=== PATIENT | male | born 1950 | race Caucasian/White ===

== ENCOUNTER 2021-05-16 18:39 | Inpatient (IN) | payer OTHER ==
--- OUTSIDE RECORDS SUMMARY | 2021-05-16 18:41 | XMS REPORT | Continuity of Care Document ---
:1950 Author Organization [facility] t Address [address] [place] [address] [address]. [address] [place] [address] Care Team Providers Name Role Phone AWILDA Attending Clinician Unavailable ANURAG_Samuel Attending Clinician Unavailable Mirian Watson Attending Clinician [phone] norma Attending Clinician Unavailable ANURAG_Samuel Admitting Clinician Unavailable [email or web address]_[email or web address] Admitting Clinician Unavailable Payers Payer Name Policy Type Policy Number Effective Date Expiration Date S ource MEDICARE PART A [id number] 2012 2024 AND B 00:00:00 00:00:00 MEDIC[place]: [id number] 2012 [employer] 00:00:00 Problems This patient has no known problems. Allergies, Adverse Reactions, Alerts This patient has no known allergies or adverse reactions. Medications This patient has no known medications. Procedures This patient has no known procedures. Encounters Start End Encounter Admission Attending Care Care Encounter Source Date/Time Date/Time Type Type Clinicians Facility Department ID 2021-04-14 Outpatient AWILDA [facility] [id number] [place] 15:22:27 [facility] 2021-04-25 2021-04-25 Outpatient NORMA [facility] [id number] [place] 03:06:00 03:06:00 208 [facility] 2021-04-25 2021-04-25 Outpatient Marj Watson [facility] [id number] 00:00:00 00:00:00 Mirian [id number] 2021-02-21 2021-02-21 Outpatient NORMA [facility] [id number] [place] 01:59:00 01:59:00 207 [facility] 2021-01-31 2021-01-31 Outpatient KEFFER_A [facility] [id number] [place] 05:28:00 05:28:00 116 [facility] 2021-01-12 2021-01-12 Outpatient KEFFER_A [facility] [id number] [place] 10:58:00 10:58:00 [id number] [facility] 2021-01-12 2021-01-12 Outpatient Marj Watson [facility] [id number] 00:00:00 00:00:00 Mirian [id number] 2020-12-14 2020-12-14 Outpatient KEFFER_A [facility] [id number] [place] 11:27:00 11:27:00 [id number] [facility] 2020-12-14 2020-12-14 Outpatient Marj Watson [facility] [id number] 00:00:00 00:00:00 Mirian [id number] 2020-09-08 2020-09-08 Outpatient KEFFER_A [facility] [id number] [place] 10:55:00 10:55:00 [id number] [facility] 2020-09-08 2020-09-08 Outpatient Marj Watson [facility] [id number] 00:00:00 00:00:00 Mirian [id number] 2020-06-22 2020-06-22 Outpatient KEFFER_A [facility] [id number] [place] 01:02:00 01:02:00 407 [facility] 2020-06-09 2020-06-09 Outpatient KEFFER_A [facility] [id number] [place] 11:55:00 11:55:00 325 [facility] 2020-06-08 2020-06-08 Outpatient KEFFER_A [facility] [id number] [place] 05:21:00 05:21:00 324 [facility] 2020-06-08 2020-06-08 Outpatient Marj Watson [facility] [id number] 00:00:00 00:00:00 Mirian [id number] 2020-02-03 2020-02-03 Outpatient nomra [facility] [id number] [place] 02:26:00 02:26:00 [id number] [facility] Results This patient has no known results.
[2021-05-16 19:01] LABS: Absolute Lymphocytes (CBC) 1.3 K/uL (0.7-4.9); Hematocrit 44.4 % (39.6-49.0); Lymphocytes % 21.7 % (15.3-44.8); MPV 9.1 fL (7.6-11.3); RBC Red Blood Cell Count 4.82 M/uL (4.33-5.43)
[2021-05-16 19:02] LABS: Protime INR 1.01
--- NOTE | 2021-05-16 19:12 | RAD REPORT ---
EXAM DESCRIPTION: RAD - Humerus Left - 05/16/2021 7:06 pm CLINICAL HISTORY: Left arm pain status post fall FINDINGS: No fracture is seen
[2021-05-16 19:15] LABS: ALT/SGPT 32 U/L (12-78); AST/SGOT 15 U/L (15-37); Albumin 3.6 g/dL (3.4-5.0); BUN Blood Urea Nitrogen 15 mg/dL (7-18); Bicarbonate 31 mmol/L (21-32); Bilirubin Direct 0.2 mg/dL (0-0.2); Bilirubin Total 0.5 mg/dL (0.2-1.0); Glucose Level 183 mg/dL (74-106); Magnesium 2.4 mg/dL (1.8-2.4); Potassium 3.7 mmol/L (3.5-5.1); Protein, Total 6.7 g/dL (6.4-8.2); Sodium Level 136 mmol/L (136-145)
[2021-05-16 19:20] LABS: Alkaline Phosphatase 84 U/L (45-117); NT PRO-BNP 25 pg/mL (<125)
--- NOTE | 2021-05-16 19:59 | RAD REPORT ---
EXAM DESCRIPTION: CT - Head C Spine Cap Mandy Buenrostro - 05/16/2021 7:45 pm CLINICAL HISTORY: Head and neck injury with chest and abdominal pain status post fall. Head and neck pain . TECHNIQUE: Computed axial tomography of the head and cervical spine was obtained Computed axial tomography of the chest, abdomen and pelvis was obtained. 100 cc Isovue-300 was given intravenously coronal and sagittal reconstruction was performed. All CT scans are performed using dose optimization technique as appropriate and may include automated exposure control or mA/KV adjustment according to patient size. COMPARISON: none FINDINGS: An intracranial bleed is not seen. The ventricles are normal in caliber. An extra-axial fl uid collection is not noted. Fluid within the sinuses is not seen A cervical fracture is not seen. No dislocation is seen. Spondylosis involves the cervical spine resu lting multilevel moderate central spinal stenosis. A mediastinal hematoma is not noted. A pleural effusion is not present. A lung contusion is not seen. The liver, spleen, pancreas, adrenals, kidneys and bladder do not demonstrate a traumatic injury Small umbilical hernia IMPRESSION: No acute intracranial abnormality is seen A cervical fracture is not visualized. If the patient continues have symptoms to suggest intracranial /spinal cord pathology then MRI would be recommended. No traumatic injury involving the chest, abdomen or pelvis is seen.
--- NOTE | 2021-05-16 20:02 | RAD REPORT ---
EXAM DESCRIPTION: Yonis Single View05/16/2021 7:06 pm CLINICAL HISTORY: Chest pain COMPARISON: none FINDINGS: The lungs appear clear of acute infiltrate. The heart is normal size IMPRESSION: No acute abnormalities displayed
[2021-05-16] MEDS ORDERED: FENTANYL CITR 100 MCG/2 ML ONE (20:05)
--- NOTE | 2021-05-16 20:40 | RAD REPORT ---
EXAM DESCRIPTION: RAD - Clavicle Left - 05/16/2021 8:20 pm CLINICAL HISTORY: Shoulder pain FINDINGS: No fracture or dislocation is seen .
[2021-05-16] MEDS ORDERED: ONDANSETRON 4 MG/2 ML VIAL ONE (21:14)
[2021-05-16] MEDS ORDERED: MORPHINE 4 MG/ML SYR ONE (21:14)
--- NOTE | 2021-05-16 21:24 | EDPHYS ---
Physician Documentation [facility] Name: Joe Gross Age: 71 yrs Sex: Male : 1950 Arrival Date: 05/16/2021 Time: 18:40 Bed 17 Private MD: ED Physician Wild Bentley HPI: 05/16 18:50 This 71 yrs old Male presents to ER via EMS with complaints of Fall Injury. cp 18:50 Details of fall: The patient fell from an upright position, while walking, and struck a cp concrete surface. Onset: The symptoms/episode began/occurred just prior to arrival. Associated injuries: The patient sustained left upper arm. Severity of symptoms: in the emergency department the symptoms have improved, moderately. 21:00 reports patient went outside to walk dog and was gone less than 5 minutes. She cp reports she went to check on him and found him on the ground and he was unresponsive for approximately 10 minutes, appears frausto. Historical: - Allergies: 19:49 No Known Allergies; lr4 - Home Meds: 19:49 clopidogrel 75 mg oral tab [Active]; lr4 - PMHx: 19:49 Diabetes mellitus; Hypertensive disorder; Cerebrovascular accident; lr4 Hypercholesterolemia; Dementia; - Immunization history: Last tetanus immunization: unknown. - Social history:: Smoking status: unknown. ROS: 18:55 Constitutional: Negative for fever. cp 18:55 Cardiovascular: Negative for chest pain. cp 18:55 Abdomen/GI: Negative for abdominal pain. 18:55 MS/extremity: Positive for pain, of the left upper arm, Negative for decreased range of motion, deformity. 18:55 Neuro: Negative for altered mental status. 18:55 Unable to obtain ROS due to baseline dementia. cp Exam: 19:00 ECG was reviewed by the Attending Physician. cp 19:05 Constitutional: The patient appears in no acute distress, alert, awake, comfortable, cp non-diaphoretic, non-toxic, well developed, well nourished. 19:05 Head/Face: Normocephalic, atraumatic. cp 19:05 Eyes: Pupils: equal, round, and reactive to light and accomodation, Conjunctiva: normal, no exudate, no injection, Sclera: no appreciated abnormality, Lids and lashes: appear normal, bilaterally. 19:05 ENT: External ear(s): are unremarkable, Nose: is normal, Mouth: Lips: moist, Oral mucosa: moist, Posterior pharynx: Airway: no evidence of obstruction, patent. 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 19:05 Chest/axilla: Inspection: normal, Palpation: crepitus, is not appreciated, tenderness, is not appreciated. 19:05 Cardiovascular: Rate: normal, Rhythm: regular, Edema: is not appreciated, JVD: is not appreciated. 19:05 Respiratory: the patient does not display signs of respiratory distress, Respirations: normal, no use of accessory muscles, no retractions, labored breathing, is not present, Breath sounds: are clear throughout, no decreased breath sounds, no stridor, no wheezing. 19:05 Abdomen/GI: Inspection: abdomen appears normal, Bowel sounds: active, all quadrants, Palpation: abdomen is soft and non-tender, in all quadrants. 19:05 Musculoskeletal/extremity: Extremities: grossly normal except: noted in the left upper arm: pain, tenderness, There is no evidence of decreased ROM, deformity, Pulses: noted to be 2+ in the right radial artery and left radial artery. 19:05 Neuro: Orientation: to person, place, Mentation: able to follow commands, slow to respond, Motor: moves all fours, strength is normal, Sensation: no obvious gross deficits. Vital Signs: 18:42 BP 122 / 71; Pulse 61; Resp 20; Temp 97.8; Pulse Ox 97% on 2 lpm NC; lr4 18:42 BP 122 / 71; Pulse 61; Resp 18; Temp 97.8(O); Pulse Ox 92% on R/A; Weight 72.57 kg; lr4 Height 5 ft. 3 in. (160.02 cm) (R); Pain 10/10; 19:58 BP 150 / 70; Pulse 91; Resp 20; Pulse Ox 98% on 2 lpm NC; lr4 20:28 BP 115 / 73; Pulse 81; Resp 18; Pulse Ox 98% on 2 lpm NC; ss7 21:18 BP 153 / 99; Pulse 88; Resp 18; Pulse Ox 95% ; lr4 21:40 BP 125 / 70; Pulse 65; Resp 20; Pulse Ox 100% on R/A; lr4 18:42 Body Mass Index 28.34 (72.57 kg, 160.02 cm) lr4 Cornell Coma Score: 18:42 Eye Response: spontaneous(4). Verbal Response: oriented(5). Motor Response: obeys lr4 commands(6). Total: 15. Trauma Score (Adult): 18:42 Eye Response: spontaneous(1); Verbal Response: oriented(1); Motor Response: obeys lr4 commands(2); Systolic BP: > 89 mm Hg(4); Respiratory Rate: 10 to 29 per min(4); Cornell Score: 15; Trauma Score: 12 MDM: 18:47 Patient medically screened. cp 19:00 Differential diagnosis: closed head injury, contusion, fracture, multiple trauma, cp cardiac arrythmia, syncope. 21:25 Data reviewed: vital signs, nurses notes, lab test result(s), EKG, radiologic studies, cp CT scan, plain films. 21:25 Test interpretation: by ED physician or midlevel provider: ECG, plain radiologic cp studies. Counseling: I had a detailed discussion with the patient and/or guardian regarding: the historical points, exam findings, and any diagnostic results supporting the discharge/admit diagnosis, lab results, radiology results. Physician consultation: Tyler Beltre was called at 21:20, was contacted at 21:20, regarding admission, to the telemetry unit. patient's condition, and will see patient in ED. 05/16 18:46 Order name: Basic Metabolic Panel cp 05/16 18:46 Order name: CBC with Diff cp 05/16 18:46 Order name: LFT's; Complete Time: 19:54 cp 05/16 18:46 Order name: Magnesium; Complete Time: 19:54 cp 05/16 18:46 Order name: NT PRO-BNP; Complete Time: 19:54 cp 05/16 18:46 Order name: PT-INR; Complete Time: 19:54 cp 05/16 18:46 Order name: Troponin HS; Complete Time: 19:54 cp 05/16 18:47 Order name: Basic Metabolic Panel; Complete Time: 19:54 EDMS 05/16 18:47 Order name: CBC with Automated Diff; Complete Time: 19:54 EDMS 05/16 21:23 Order name: COVID-19 SARS RT PCR (Document "Date of Onset" if Symptomatic) cp 05/16 21:23 Order name: SARS-COV-2 RT PCR; Complete Time: 08:11 EDMS 03 00:47 Order name: Troponin High Sensitivity; Complete Time: 08:11 EDMS 05/17 02:18 Order name: Urinalysis; Complete Time: 08:11 EDMS 05/17 05:38 Order name: CBC with Automated Diff; Complete Time: 08:11 EDMS 05/16 18:46 Order name: XRAY Chest (1 view); Complete Time: 20:48 cp 05/16 20:48 Interpretation: Report review. cp 05/16 18:46 Order name: XRAY Humerus LEFT; Complete Time: 19:54 cp 05/16 18:46 Order name: CT Traumagram (Head C Spine CAP W Con); Complete Time: 20:48 cp 05/16 19:56 Order name: XRAY Clavicle LEFT; Complete Time: 20:48 cp 05/16 20:49 Interpretation: Report reviewed. cp 03 05:39 Order name: Troponin High Sensitivity; Complete Time: 08:11 EDMS 05/17 05:43 Order name: Comprehensive Metabolic Panel; Complete Time: 08:11 EDMS 05/17 05:43 Order name: Lipid Profile; Complete Time: 08:11 EDMS 05/17 05:43 Order name: T4 Free; Complete Time: 08:11 EDMS 05/17 05:43 Order name: Magnesium; Complete Time: 08:11 EDMS 05/17 05:43 Order name: Thyroid Stimulating Hormone; Complete Time: 08:11 EDMS 05/17 06:54 Order name: Manual Differential; Complete Time: 08:11 EDMS 05/17 07:41 Order name: US; Complete Time: 08:11 EDMS 05/17 08:43 Order name: Glucose, Ancillary Testing EDMS 05/16 18:46 Order name: EKG; Complete Time: 18:47 cp 05/16 18:46 Order name: Cardiac monitoring; Complete Time: 18:59 cp 05/16 18:46 Order name: EKG - Nurse/Tech; Complete Time: 18:59 cp 05/16 18:46 Order name: IV Saline Lock; Complete Time: 18:59 cp 05/16 18:46 Order name: Labs collected and sent; Complete Time: 18:59 cp 05/16 18:46 Order name: O2 Per Protocol; Complete Time: 18:59 cp 05/16 18:46 Order name: O2 Sat Monitoring; Complete Time: 18:59 cp EC:00 Rate is 64 beats/min. Rhythm is regular. MA interval is normal. QRS interval is normal. cp QT interval is normal. Interpreted by me. Reviewed by me. Administered Medications: 20:01 Drug: fentaNYL (PF) 25 mcg Route: IVP; Site: left antecubital; lr4 20:07 Follow up: Response: Pain is decreased lr4 21:17 Follow up: Response: Pain is unchanged, physician notified lr4 21:17 Drug: morphine 4 mg Route: IVP; Site: left antecubital; lr4 21:35 Follow up: Response: No adverse reaction; Pain is decreased lr4 21:17 Drug: Zofran (Ondansetron) 4 mg Route: IVP; Site: left antecubital; lr4 21:18 Follow up: Response: Nausea is decreased lr4 Disposition: 21:45 Chart complete. cp Disposition Summary: 05/16/21 21:24 Hospitalization Ordered Hospitalization Status: Observation cp Provider: Prince adolfo Murdock Condition: Stable cp Problem: new cp Symptoms: have improved cp Bed/Room Type: Standard cp Location: Telemetry/MedSurg (observation)(05/17/21 08:01) bd Room Assignment: 423(05/17/21 08:01) bd Diagnosis - Syncope cp Forms: - Medication Reconciliation Form cp - SBAR form cp Signatures: Dispatcher [employer] EDDarlene Huang Martha, RN RN Carmelo Carlos PA PA cp Wild Bentley MD MD ma2 Marietta Lima RN RN lr4 Corrections: (The following items were deleted from the chart) 21:54 21:24 Telemetry/MedSurg (observation) cp mw 21:54 21:24 cp mw 05/17 08:01 03 21:54 [facility] ER HOLD mw bd 05/17 08:05/16 21:54 ERHOLD- mw bd
--- NOTE | 2021-05-16 21:24 | ER ---
Nurse's Notes [facility] Name: Joe Gross Age: 71 yrs Sex: Male : 1950 Arrival Date: 05/16/2021 Time: 18:40 Bed 17 Private MD: Diagnosis: Syncope Presentation: 05/16 18:40 Chief complaint: EMS states: BIB ems for fall, ems states patient has dementia and was lr4 found down in yard, pt currently awake c/o of L shoulder pain and sob. Care prior to arrival: Cervical collar in place. Medication(s) given: oxygen bnc. Mechanism of Injury: Fall from standing position. Trauma event details: Injury occurred: at home. Injury occurred: May 16, 2021. 18:41 Method Of Arrival: EMS: [facility] lr4 18:42 Acuity: ANTONIA 2 lr4 19:48 Coronavirus screen: Vaccine status: Client denies travel out of the [place] in the last 14 lr4 days. At this time, the client does not indicate any symptoms associated with coronavirus-19. Ebola Screen: Patient negative for fever greater than or equal to 101.5 degrees Fahrenheit, and additional compatible Ebola Virus Disease symptoms. Initial Sepsis Screen: Does the patient meet any 2 criteria? No. Patient's initial sepsis screen is negative. Does the patient have a suspected source of infection? No. Patient's initial sepsis screen is negative. Risk Assessment: Do you want to hurt yourself or someone else? Patient reports no desire to harm self or others. Onset of symptoms was May 16, 2021. Trauma Activation: Alert Physician: ED Physician; Name: Carmelo LEGGETT; Notified At: 18:42; Arrived At: 18:42 Physician: General Surgeon; Name: ; Notified At: 18:42; Arrived At: Physician: Radiology; Name: ; Notified At: 18:42; Arrived At: Physician: Respiratory; Name: ; Notified At: 18:42; Arrived At: Physician: Lab; Name: ; Notified At: 18:42; Arrived At: Historical: - Allergies: 19:49 No Known Allergies; lr4 - Home Meds: 19:49 clopidogrel 75 mg oral tab [Active]; lr4 - PMHx: 19:49 Diabetes mellitus; Hypertensive disorder; Cerebrovascular accident; lr4 Hypercholesterolemia; Dementia; - Immunization history: Last tetanus immunization: unknown. - Social history:: Smoking status: unknown. Screenin:43 Abuse screen: Denies threats or abuse. Nutritional screening: No deficits noted. lr4 Tuberculosis screening: No symptoms or risk factors identified. Fall Risk Secondary diagnosis (15 points) IV access (20 points). Ambulatory Aid- None/Bed Rest/Nurse Assist (0 pts). Gait- Weak (10 pts.). Mental Status- Overestimates/Forgets Limitations (15 pts.). Total Ortiz Fall Scale indicates High Risk Score (45 or more points). Fall prevention measures have been instituted. Placed Close to Nursing Station Frequent Obs/Assessments Occuring Family Present and informed to notify staff if the need to leave the bedside As available patient and family educated on Fall Prevention Program and Strategies. Primary Survey: 18:41 NO uncontrolled hemorrhage observed. A: The patient is alert. Airway: patent. lr4 Breathing/Chest: Respiratory pattern: regular, Respiratory effort: spontaneous, unlabored. Circulation: Cardiac rhythm: sinus tachycardia Heart tones present. Pulses: palpable right radial artery and left radial artery. Disability Alert. Exposure/Environment: All clothing and personal items were removed. There is no evidence of uncontrolled external bleeding. Obvious injury(ies) are noted at this time: Left shoulder pain. Reassessment Airway Airway Patent Breathing/Chest Respiratory pattern Regular Respiratory effort Spontaneous Unlabored Circulation Heart tones Present Disability Alert. Secondary Survey: 18:41 HEENT: No deficits noted. lr4 Assessment: 18:41 General: Appears in no apparent distress. comfortable, well groomed, well developed, lr4 Behavior is calm, cooperative, drowsy. Pain: Complains of pain in Left shoulder Pain currently is 10 out of 10 on a pain scale. Quality of pain is described as aching, Pain began 1 hour ago. Is continuous, Current management - is no interventions. 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 Speech is normal, Facial symmetry appears normal, Pupils are PERRLA, Pupil Size: 3 Intact Reports Denies dizziness, difficulty swallowing, paresthesias numbness headache. Cardiovascular: No deficits noted. Respiratory: No deficits noted. GI: No deficits noted. Musculoskeletal: Circulation, motion, and sensation intact. Capillary refill < 3 seconds, Range of motion: limited in left shoulder and left elbow Reports pain in Left shoulder. 21:00 Reassessment: Patient states symptoms have improved. Pt cleared off of c-spine by carmelo lr4 gail LEGGETT. Vital Signs: 18:42 BP 122 / 71; Pulse 61; Resp 20; Temp 97.8; Pulse Ox 97% on 2 lpm NC; lr4 18:42 BP 122 / 71; Pulse 61; Resp 18; Temp 97.8(O); Pulse Ox 92% on R/A; Weight 72.57 kg; lr4 Height 5 ft. 3 in. (160.02 cm) (R); Pain 10/10; 19:58 BP 150 / 70; Pulse 91; Resp 20; Pulse Ox 98% on 2 lpm NC; lr4 20:28 BP 115 / 73; Pulse 81; Resp 18; Pulse Ox 98% on 2 lpm NC; ss7 21:18 BP 153 / 99; Pulse 88; Resp 18; Pulse Ox 95% ; lr4 21:40 BP 125 / 70; Pulse 65; Resp 20; Pulse Ox 100% on R/A; lr4 18:42 Body Mass Index 28.34 (72.57 kg, 160.02 cm) lr4 [place]augh Coma Score: 18:42 Eye Response: spontaneous(4). Verbal Response: oriented(5). Motor Response: obeys lr4 commands(6). Total: 15. Trauma Score (Adult): 18:42 Eye Response: spontaneous(1); Verbal Response: oriented(1); Motor Response: obeys lr4 commands(2); Systolic BP: > 89 mm Hg(4); Respiratory Rate: 10 to 29 per min(4); Cornell Score: 15; Trauma Score: 12 ED Course: 18:40 Patient arrived in ED. ds1 18:42 Arm band placed on right wrist. lr4 18:45 Carmelo Yan PA is PHCP. cp 18:45 Wild Bentley MD is Attending Physician. cp 18:59 Guerita Ruiz RN is Primary Nurse. ss7 18:59 Basic Metabolic Panel Sent. ss7 18:59 CBC with Automated Diff Sent. ss7 18:59 Basic Metabolic Panel Sent. ss7 18:59 CBC with Diff Sent. ss7 18:59 LFT's Sent. ss7 18:59 Magnesium Sent. ss7 19:00 NT PRO-BNP Sent. ss7 19:00 PT-INR Sent. ss7 19:00 Troponin HS Sent. ss7 19:06 XRAY Chest (1 view) In Process Unspecified. EDMS 19:06 XRAY Humerus LEFT In Process Unspecified. EDMS 19:37 Triage completed. lr4 19:45 CT Traumagram (Head C Spine CAP W Con) In Process Unspecified. EDMS 19:47 No provider procedures requiring assistance completed. lr4 19:49 Oxygen administration via nasal cannula \\T\\ 2L/min. lr4 19:52 Thermoregulation: warm blanket given to patient. lr4 19:52 Patient has correct armband on for positive identification. Bed in low position. Side lr4 rails up X2. Adult w/ patient. Door closed. Noise minimized. Warm blanket given. Head of bed. 20:19 XRAY Clavicle LEFT In Process Unspecified. EDMS 21:23 Prince Murdock MD is Hospitalizing Provider. cp 21:35 COVID-19 SARS RT PCR (Document "Date of Onset" if Symptomatic) Sent. lr4 23:09 Report given to Najma blake. lr4 05/17 10:04 Patient admitted, IV remains in place. ww Administered Medications: 05/16 20:01 Drug: fentaNYL (PF) 25 mcg Route: IVP; Site: left antecubital; lr4 20:07 Follow up: Response: Pain is decreased lr4 21:17 Follow up: Response: Pain is unchanged, physician notified lr4 21:17 Drug: morphine 4 mg Route: IVP; Site: left antecubital; lr4 21:35 Follow up: Response: No adverse reaction; Pain is decreased lr4 21:17 Drug: Zofran (Ondansetron) 4 mg Route: IVP; Site: left antecubital; lr4 21:18 Follow up: Response: Nausea is decreased lr4 Intake: 18:42 PO: 0ml; Total: 0ml. lr4 Outcome: 19:48 Condition: stable lr4 19:49 Patient's length of stay was not longer than 2 hours. lr4 21:24 Decision to Hospitalize by Provider. cp 05/17 09:52 Admitted to Med/surg Report called to IFLEMON Mitchell attempted report at [phone] to Elaine devon unable to take report, [phone]- Annika said her charge nurse isn't upstairs and she can't take report 10:05 Patient left the ED. devon Signatures: Dispatcher [employer] EDTX KeithMichelle ds1 Carmelo Yan PA PA cp Wood, Whitney, RN RN ww Smith, Shana, RN RN ss7 Marietta Lima RN RN lr4 Corrections: (The following items were deleted from the chart) 05/16 22:04 18:42 BP 122 / 71; Pulse 61bpm; Resp 18bpm; Pulse Ox 92% RA; Temp 97.8F Oral; 74.84 kg; lr4 Height 5 ft. 10 in. Reported; BMI: 23.6; Pain 10/10; lr4
--- NOTE | 2021-05-16 21:54 | P.HP ---
Certification for Inpatient Patient admitted to: Observation With expected LOS: <2 Midnights Patient will require the following post-hospital care: None Practitioner: I am a practitioner with admitting privileges, knowledge of patient current condition, hospital course, and medical plan of care. Services: Services provided to patient in accordance with Admission requirements found in Title 42 Section 412.3 of the Code of Federal Regulations Patient History Date of Service: 05/16/21 Reason for admission: Syncope, fall History of Present Illness: 71-year-old male with history of diabetes mellitus type [id number], hypertension, hyperlipidemia and dementia presents to the emergency department after sustaining a syncopal episode at home. Patient lives at home with his who is his primary caregiver, patient managed to get outside when was otherwise occupied, he was out of her sight for just a minute or 2 she reports. When she found him he was in the backyard laying on the ground on his back, she reports he was unresponsive, his skin appeared frausto and she reports he looked "as if he was ". reports patient was unresponsive for the next 5 to 10 minutes until EMS arrived at which point he began to regain consciousness. At this time patient is back to his baseline mental status. Patient was evaluated in the emergency department his labs were unremarkable he had a CT head, neck, chest abdomen and pelvis as well as x-rays of humerus, clavicle and chest x-ray all of which were negative for any acute findings. Patient's is at bedside, he is currently oriented x1, agitated reporting that he would like to get up out of bed. Patient reports this is normal behavior for him while he is in the hospital. Given syncope with prolonged loss of consciousness ED provider wishes to admit for further evaluation and management. Patient denies any symptoms at this time although ROS is severely limited given patient's mental capacity. - Past Medical/Surgical History -: Dementia -: Hypertension -: Hyperlipidemia -: Diabetes mellitus type [id number] Past Surgical History: Unable to obtain Psychosocial/ Personal History: Patient lives at home with his who is his primary caregiver - Family History Family History: Reviewed- Non-Contributory - Social History Smoking Status: Never smoker Alcohol use: No CD- Drugs: No Caffeine use: Yes Place of Residence: Home Review of Systems is unable to be obtained Physical Examination - Physical Exam General: Alert, In no apparent distress, Oriented x3 HEENT: Atraumatic, PERRLA, Mucous membr. moist/pink, EOMI, Sclerae nonicteric Neck: Supple, 2+ carotid pulse no bruit, No LAD, Without JVD or thyroid abnormality Respiratory: Clear to auscultation bilaterally, Normal air movement Cardiovascular: Regular rate/rhythm, Normal S1 S2 Gastrointestinal: Normal bowel sounds, No tenderness Musculoskeletal: No tenderness Integumentary: No rashes Neurological: Normal gait, Normal speech, Normal strength at 5/5 x4 extr, Normal tone, Normal affect Lymphatics: No axilla or inguinal lymphadenopathy - Studies Laboratory Data (last 24 hrs) 05/16/21 18:49: PT 11.6, INR 1.01 05/16/21 18:49: WBC 6.10, Hgb 14.9, Hct 44.4, Plt Count 197 05/16/21 18:49: Sodium 136, Potassium 3.7, BUN 15, Creatinine 0.70, Glucose 183 H, Magnesium 2.4, Total Bilirubin 0.5, AST 15, ALT 32, Alkaline Phosphatase 84 Assessment and Plan - Plan Assessment: Syncope and collapse Diabetes mellitus type [id number]-xfebfdxgx with hyperglycemia Hypertension Hyperlipidemia Dementia Plan: Syncope and collapse: Trend troponins, monitor on telemetry, cardiology consulted. Will obtain echocardiogram, carotid Doppler. ROS significantly limited given patient's mental capacity. reports patient was unresponsive for 5 to 10 minutes and "hurst". Appreciate further input from cardiology. Diabetes mellitus type 0gis-zuocrgr-przveeyym with hyperglycemia: ACH S Accu- Chek, sliding scale insulin. Hypertension: Obtain and continue home medications Hyperlipidemia:Obtain and continue home medications Dementia: Obtain and continue home medications, patient significantly agitated at this time will need to provide as needed medicationsGeodon. also will remain at bedside to help care for patient reports she needs to do this while he is in the hospital. Patient follows neurology on outpatient basis, reports progressive significant worsening in dementia over the course of the last few years. DVT PPX: Lovenox Code status: Full Discharge Plan: Home Plan to discharge in: 24 Hours - Advance Directives Does patient have a Living Will: No Does patient have a Durable POA for Healthcare: No - Code Status/Comfort Care Code Status Assessed: Yes (full code) Critical Care: No Time Spent Managing Pts Care (In Minutes): 55
[2021-05-16 23:59] VITALS: BMI 28.3
[2021-05-17] MEDS ORDERED: WATER FOR INJ,STERILE 10 ML IM PRN
[2021-05-17] MEDS ORDERED: ONDANSETRON 4 MG/2 ML VIAL IV PRN
[2021-05-17] MEDS ORDERED: ZIPRASIDONE MESYLA 20 MG/VIAL IM PRN
[2021-05-17 02:17] LABS: Urine Appearance CLEAR (Clear); Urine Bilirubin NEGATIVE (Negative); Urine Blood NEGATIVE (Negative); Urine Color YELLOW (Yellow); Urine Glucose 3+ (Negative); Urine Microscopic Reflex NO UMIC; Urine Protein NEGATIVE (Negative); Urine Specific Gravity >=1.030 (1.005-1.030)
[2021-05-17] MEDS ORDERED: TRAMADOL HCL 50 MG TAB ONE (05:28)
[2021-05-17 05:36] LABS: Absolute Lymphocytes (CBC) 0.5 K/uL (0.7-4.9); Hematocrit 46.2 % (39.6-49.0); Lymphocytes % 6.3 % (15.3-44.8); MPV 9.3 fL (7.6-11.3); RBC Red Blood Cell Count 5.03 M/uL (4.33-5.43)
[2021-05-17 05:42] LABS: ALT/SGPT 36 U/L (12-78); AST/SGOT 14 U/L (15-37); Alkaline Phosphatase 91 U/L (45-117); BUN Blood Urea Nitrogen 18 mg/dL (7-18); Bicarbonate 27 mmol/L (21-32); Bilirubin Total 0.7 mg/dL (0.2-1.0); Glucose Level 209 mg/dL (74-106); Potassium 4.4 mmol/L (3.5-5.1); Protein, Total 6.8 g/dL (6.4-8.2); Sodium Level 138 mmol/L (136-145)
[2021-05-17 05:43] LABS: Albumin 3.7 g/dL (3.4-5.0); HDL Cholesterol 57 mg/dL (40-60); LDL Cholesterol, Calculated 173 (<130); Magnesium 2.6 mg/dL (1.8-2.4); Thyroid Stimulating Hormone 0.931 uIU/mL (0.360-3.740)
[2021-05-17] MEDS: TRAMADOL HCL 50 MG TAB PO PRN ×2 (05:47→13:01)
[2021-05-17 06:54] LABS: Blood Morphology Comment NOT SEEN (NOT SEEN); Platelet Estimate ADEQ
[2021-05-17] MEDS: INSULIN -REGULAR HUMAN 50 UNIT/0.5 ML ML SQ SCH ×4 (07:30→20:55)
--- NOTE | 2021-05-17 07:40 | RAD REPORT ---
EXAM DESCRIPTION: - CP - 05/17/2021 1:14 am CLINICAL HISTORY: syncope COMPARISON: No comparisons TECHNIQUE: Real-time sonographic evaluation of both carotid systems was performed. Doppler interroga tion was performed with waveform tracing bilaterally. FINDINGS: Normal high resistance waveforms are noted in both external carotid arteries. The common c arotid arteries and internal carotid arteries show normal low resistance waveforms. Soft plaque is present at the right common carotid artery distally, the left carotid bulb, and the le ft proximal ICA. Hard plaque is present at the right ICA proximally and distally, right external quinn tid artery, and right bulb. Peak systolic and end diastolic velocity values and the ICA/CCA ratios ar e in the non-hemodynamically significant range. Antegrade flow seen in both vertebral arteries. IMPRESSION: Atherosclerosis without evidence of a hemodynamically significant stenosis.
[2021-05-17] MEDS ORDERED: PNEUMOCOCCAL VACCINE 0.5 ML IMVAC ONE (08:00)
[2021-05-17] MEDS: ENOXAPARIN 40 MG/0.4 ML SQ SCH (09:00)
[2021-05-17] MEDS ORDERED: ENOXAPARIN 40 MG/0.4 ML SQ ONE (10:04)
[2021-05-17 10:15] VITALS: O2SAT 100
--- NOTE | 2021-05-17 11:07 | EKG ---
Test Date: 2021-05-16 Test Time: 18:50:36 Bulk Pallet Builder: DOUG MEASUREMENT RESULTS: Intervals: Rate: 76 NV: 158 QRSD: 88 QT: 446 QTc: 501 [place]: P: 61 NV: 158 QRS: -47 T: 30 INTERPRETIVE STATEMENTS: Sinus rhythm with occasional and consecutive premature ventricular complexes Left anterior fascicular block Moderate voltage criteria for LVH, may be normal variant Cannot rule out Septal infarct, age undetermined Prolonged QT Abnormal ECG Compared to ECG 05/16/2021 18:50:09 Ventricular premature complex(es) now present Prolonged QT interval now present Myocardial infarct finding still present Electronically Signed On 05-17-21 11:07:07 MACHINE OPERATIONS SUPERVISOR by Cameron Sanford
--- NOTE | 2021-05-17 11:08 | EKG ---
Test Date: 2021-05-16 Test Time: 18:50:09 Home Improvement Advisor: DOUG MEASUREMENT RESULTS: Intervals: Rate: 64 AR: 168 QRSD: 90 QT: 444 QTc: 458 [place]: P: 27 AR: 168 QRS: -49 T: 33 INTERPRETIVE STATEMENTS: Normal sinus rhythm Left anterior fascicular block Moderate voltage criteria for LVH, may be normal variant Cannot rule out Septal infarct, age undetermined Abnormal ECG No previous ECG available for comparison Electronically Signed On 05-17-21 11:07:08 ATG JAVA DEVELOPER by Cameron Sanford
--- NOTE | 2021-05-17 11:11 | ECHO ---
HEIGHT: 5 ft 3 in WEIGHT: 160 lb 0 oz DATE OF STUDY: 05/17/[address]: Tyler Beltre NP 2-DIMENSIONAL: YES M.MODE: YES DOPPLER: YES COLOR FLOW: YES TDS: NO PORTABLE: NO DEFINITY: NO BUBBLE STUDY: NO DIAGNOSIS: SYNCOPE, PROLONGED LOC, UNABLE TO GET ROS WITH DEMENTIA CARDIAC HISTORY: CATHERIZATION: NO SURGERY: NO PROSTHETIC VALVE: NO PACEMAKER: NO MEASUREMENTS (cm) DIASTOLIC (NORMALS) SYSTOLIC (NORMALS) IVSd 1.0 (0.6-1.2) LA Diam 3.1 (1.9-4.0) LVEF 79% LVIDd 4.1 (3.5-5.7) LVIDs 2.2 (2.0-3.5) %FS 47% LVPWd 1.0 (0.6-1.2) Ao Diam 2.6 (2.0-3.7) 2 DIMENSIONAL ASSESSMENT: RIGHT ATRIUM: NORMAL LEFT ATRIUM: NORMAL RIGHT VENTRICLE: NORMAL LEFT VENTRICLE: NORMAL TRICUSPID VALVE: NORMAL MITRAL VALVE: NORMAL PULMONIC VALVE: NORMAL AORTIC VALVE: NORMAL PERICARDIAL EFFUSION: NONE AORTIC ROOT: NORMAL LEFT VENTRICULAR WALL MOTION: NORMAL DOPPLER/COLOR FLOW: MILD TRICUSPID REGURGITATION. COMMENTS: MILD TRICUSPID REGURGITATION. NORMAL LEFT VENTRICULAR SIZE AND FUNCTION. NO EFFUSION. TECHNOLOGIST: Heriberto WILLETT
[2021-05-17] MEDS ORDERED: LORazepam 2 MG/ML VIAL IV ONE (16:30)
--- NOTE | 2021-05-17 16:38 | P.PN ---
Subjective Date of Service: 05/17/21 Chief Complaint: Syncope, fall Subjective: Improving (Status is improved. He has no strength to both his upper extremities.) Physical Examination - Vital Signs Temperature: 98.6 F Blood Pressure: 169/75 Pulse: 89 Respirations: 16 Pulse Ox (%): 91 - Physical Exam General: In no apparent distress, Cooperative HEENT: Atraumatic, Normocephalic, PERRLA Respiratory: Clear to auscultation bilaterally, Normal air movement Cardiovascular: Regular rate/rhythm, Normal S1 S2 Gastrointestinal: Soft and benign, Non-distended Neurological: Other (Bilateral upper extremity weakness) - Studies Laboratory Data (last 24 hrs) 05/16/21 18:49: PT 11.6, INR 1.01 05/16/21 18:49: WBC 6.10, Hgb 14.9, Hct 44.4, Plt Count 197 05/16/21 18:49: Sodium 136, Potassium 3.7, BUN 15, Creatinine 0.70, Glucose 183 H, Magnesium 2.4, Total Bilirubin 0.5, AST 15, ALT 32, Alkaline Phosphatase 84 Assessment And Plan - Current Problems (Diagnosis) (1) Syncope Current Visit: Yes Status: Acute Physician Review Additional Text: 05/17/21 16:35 Assessment Patient is 71-year-old male past medical history of dementia, type 2 diabetes mellitus, hypertension hyperlipidemia. He is admitted for evaluation of syncope which was witnessed by his . Trauma work-up was unremarkable. CT head was negative for acute injury as well. His 2D echo and carotid Doppler are also unremarkable. He seems to have lost the strength to both his upper extremities. Syncope Upper extremity weakness Type 2 diabetes mellitus Hypertension Hyperlipidemia Dementia Plan: I will obtain a brain MRI to rule out CVA I also obtain cervical MRI to loss of motor function to both his upper extremities PT/OT while in house Patient can be discharged tomorrow if cleared by physical therapy.
--- NOTE | 2021-05-17 18:28 | RAD REPORT ---
EXAM DESCRIPTION: MRI - C Spine W/Wo Cont- 05/17/2021 6:18 pm CLINICAL HISTORY: B/L UE weakness Neck pain, radiculopathy COMPARISON: No comparisons FINDINGS: Cervical vertebral bodies are normal in height and alignment. No suspicious marrow edema or marrow replacing process. No fracture or traumatic subluxation. The craniocervical junction is normal. C2-3 level: Small posterior osteophyte/disc complex is present attenuating the anterior subarachnoid space and contacting the cord. C3-4 level: Moderate posterior osteophyte/ disc complex is present moderate to significantly narrowin g the central canal to 5-6 mm. C4-5 level: Moderate posterior osteophyte/disc complex is present moderately to significantly narrowi ng the central canal to 5 mm. C5-6 level: Small posterior osteophyte/ disc complex is present attenuating the anterior subarachnoid space and deforming the central canal. Central canal measures 7 mm. Both exit foramina appear mildly narrowed. C6-7 level: Moderate posterior osteophyte/ disc complex is present attenuating the anterior subarachn oid space and narrowing the central canal to 7 mm. Both exit foramina are moderately narrowed. C7-T1 level: No significant findings. Increased T2 signal is seen within the cord particularly at the C3-4 and C4-5 level likely representi ng cord edema related to stenosis. No pathologic post-contrast enhancement is seen to indicate tumor or infection. IMPRESSION: Multilevel degenerative spondylosis of the cervical spine is seen, greatest at C3-4 and C4-5 where there is significant canal stenosis and associated cord edema suspected. No pathologic con trast enhancement seen.
--- NOTE | 2021-05-17 18:34 | RAD REPORT ---
EXAM DESCRIPTION: MRI - Brain Wo Cont - 05/17/2021 6:00 pm CLINICAL HISTORY: syncope Headache, drowsiness COMPARISON: Brain W/Wo Cont dated 06/12/2018 TECHNIQUE: Multi-sequence, multiplanar MR imaging of the brain was performed without contrast. FINDINGS: No intracranial hemorrhage, hydrocephalus or extra-axial fluid collections.Moderate brain atrophy with moderate periventricular and deep white matter chronic microvascular ischemic changes. N o edema or shift of midline structures. No findings to suspect brain mass.Small 6 mm old infarct susp ected left cerebellar hemisphere. 3-4 mm focus of restricted diffusion noted right lateral aspect of the alejandro which shows subtle diminished ADC map signal and subtle elevation and FLAIR signal. This may represent a small acute microinfarct. Midline structures are normally formed. Mastoid air cells and paranasal sinuses are clear. IMPRESSION: A small 3-4 mm acute microinfarct may be present in the right lateral aspect of the alejandro .
[2021-05-18 06:26] LABS: Albumin 3.5 g/dL (3.4-5.0); BUN Blood Urea Nitrogen 21 mg/dL (7-18); Bicarbonate 28 mmol/L (21-32); Glucose Level 115 mg/dL (74-106); Magnesium 2.4 mg/dL (1.8-2.4); Potassium 3.9 mmol/L (3.5-5.1); Sodium Level 138 mmol/L (136-145)
[2021-05-18 06:27] LABS: Hematocrit 46.1 % (39.6-49.0); Lymphocytes % 9.7 % (15.3-44.8); RBC Red Blood Cell Count 4.96 M/uL (4.33-5.43)
[2021-05-18 06:31] LABS: ALT/SGPT 29 U/L (12-78); AST/SGOT 9 U/L (15-37); Alkaline Phosphatase 87 U/L (45-117); Bilirubin Total 0.8 mg/dL (0.2-1.0); Protein, Total 6.5 g/dL (6.4-8.2)
[2021-05-18] MEDS: INSULIN -REGULAR HUMAN 50 UNIT/0.5 ML ML SQ SCH ×4 (07:30→21:00)
[2021-05-18] MEDS ORDERED: ASPIRIN EC 81 MG TAB PO SCH (09:00)
[2021-05-18] MEDS: ENOXAPARIN 40 MG/0.4 ML SQ SCH (10:52)
[2021-05-18] MEDS: TRAMADOL HCL 50 MG TAB PO PRN (10:53)
[2021-05-18] MEDS ORDERED: dexAMETHasone 10 MG/ML VIAL IV ONE (12:33)
--- NOTE | 2021-05-18 15:56 | P.PN ---
Subjective Date of Service: 05/18/21 Chief Complaint: Syncope, fall Subjective: No new changes (Patient found to have acute stroke on Brain MRI. He also has cervical spinal cord edema. He has lost significant motor function to BOTH his upper extremities) Physical Examination - Vital Signs Temperature: 98.6 F Blood Pressure: 151/71 Pulse: 72 Respirations: 18 Pulse Ox (%): 98 - Physical Exam General: In no apparent distress, Cooperative HEENT: Atraumatic, Normocephalic Cardiovascular: Regular rate/rhythm, Normal S1 S2 Gastrointestinal: Soft and benign, Non-distended Neurological: Abnormal speech, Abnormal strength, Abnormal sensation Assessment And Plan - Current Problems (Diagnosis) (1) Syncope Current Visit: Yes Status: Acute Physician Review Additional Text: 05/17/21 16:35 Assessment Patient is 71-year-old male past medical history of dementia, type 2 diabetes mellitus, hypertension hyperlipidemia. He is admitted for evaluation of syncope which was witnessed by his . Trauma work-up was unremarkable. Brain MRI with evidence of acute stroke in the lateral pontine area. He was also found to have spine cord edema of the cervical spine. Acute CVA Syncope Cervical spinal cord edema Type 2 diabetes mellitus Hypertension Hyperlipidemia Dementia Plan: Will give a dose of IV Dexamethasone Arrange transfer to spine service to his cervical spine Continue ASA and statin for CVA. I have also consulted Neurology for consult PT/OT while in house
[2021-05-18 15:57] VITALS: TEMP 98.6
[2021-05-18] MEDS ORDERED: POTASSIUM CL SA 10 MEQ TAB PO ONE (16:00)
[2021-05-18 19:19] VITALS: BP 140/70
[2021-05-18] MEDS ORDERED: ATORVASTATIN 80 MG TAB PO SCH (21:00)
--- NOTE | 2021-05-18 21:10 | P.DS ---
Admission Date: 05/17/21 Discharge Date: 05/18/21 Disposition: TRANSFER TO [facility] Discharge Condition: FAIR Reason for Admission: Syncope, fall Consultations: Cardiology: Dr. Sanford Neurology: Dr. Moyer Procedures: Problem list Acute CVA Syncope Cervical spinal cord edema Type 2 diabetes mellitus Hypertension Hyperlipidemia Dementia Echocardiogram MILD TRICUSPID REGURGITATION. NORMAL LEFT VENTRICULAR SIZE AND FUNCTION. NO EFFUSION. Carotid artery ultrasound 05/17/2021 FINDINGS: Normal high resistance waveforms are noted in both external carotid arteries. The common carotid arteries and internal carotid arteries show normal low resistance waveforms. Soft plaque is present at the right common carotid artery distally, the left carotid bulb, and the left proximal ICA. Hard plaque is present at the right ICA proximally and distally, right external carotid artery, and right bulb. Peak systolic and end diastolic velocity values and the ICA/CCA ratios are in the non-hemodynamically significant range. Antegrade flow seen in both vertebral arteries. IMPRESSION: Atherosclerosis without evidence of a hemodynamically significant stenosis. C-spine MRI 05/17/2021 FINDINGS: Cervical vertebral bodies are normal in height and alignment. No suspicious marrow edema or marrow replacing process. No fracture or traumatic subluxation. The craniocervical junction is normal. C2-3 level: Small posterior osteophyte/disc complex is present attenuating the anterior subarachnoid space and contacting the cord. C3-4 level: Moderate posterior osteophyte/ disc complex is present moderate to significantly narrowing the central canal to 5-6 mm. C4-5 level: Moderate posterior osteophyte/disc complex is present moderately to significantly narrowing the central canal to 5 mm. C5-6 level: Small posterior osteophyte/ disc complex is present attenuating the anterior subarachnoid space and deforming the central canal. Central canal measures 7 mm. Both exit foramina appear mildly narrowed. C6-7 level: Moderate posterior osteophyte/ disc complex is present attenuating the anterior subarachnoid space and narrowing the central canal to 7 mm. Both exit foramina are moderately narrowed. C7-T1 level: No significant findings. Increased T2 signal is seen within the cord particularly at the C3-4 and C4-5 level likely representing cord edema related to stenosis. No pathologic post-contrast enhancement is seen to indicate tumor or infection. IMPRESSION: Multilevel degenerative spondylosis of the cervical spine is seen, greatest at C3-4 and C4-5 where there is significant canal stenosis and associated cord edema suspected. No pathologic contrast enhancement seen. Brain MRI 05/17/2021 FINDINGS: No intracranial hemorrhage, hydrocephalus or extra-axial fluid collections.Moderate brain atrophy with moderate periventricular and deep white matter chronic microvascular ischemic changes. No edema or shift of midline structures. No findings to suspect brain mass.Small 6 mm old infarct suspected left cerebellar hemisphere. 3-4 mm focus of restricted diffusion noted right lateral aspect of the alejandro which shows subtle diminished ADC map signal and subtle elevation and FLAIR signal. This may represent a small acute microinfarct. Midline structures are normally formed. Mastoid air cells and paranasal sinuses are clear. IMPRESSION: A small 3-4 mm acute microinfarct may be present in the right lateral aspect of the alejandro. Clavicle x-ray 05/16/2021 CLINICAL HISTORY: Shoulder pain FINDINGS: No fracture or dislocation is seen . Humerus x-ray 05/16/2021 CLINICAL HISTORY: Left arm pain status post fall FINDINGS: No fracture is seen CT head/C-spine/chest abdomen pelvis 05/17/2019 FINDINGS: An intracranial bleed is not seen. The ventricles are normal in caliber. An extra-axial fluid collection is not noted. Fluid within the sinuses is not seen A cervical fracture is not seen. No dislocation is seen. Spondylosis involves the cervical spine resulting multilevel moderate central spinal stenosis. A mediastinal hematoma is not noted. A pleural effusion is not present. A lung contusion is not seen. The liver, spleen, pancreas, adrenals, kidneys and bladder do not demonstrate a traumatic injury Small umbilical hernia IMPRESSION: No acute intracranial abnormality is seen A cervical fracture is not visualized. If the patient continues have symptoms to suggest intracranial/spinal cord pathology then MRI would be recommended. No traumatic injury involving the chest, abdomen or pelvis is seen. Chest x-ray 05/16/2021 FINDINGS: The lungs appear clear of acute infiltrate. The heart is normal size IMPRESSION: No acute abnormalities displayed Brief History of Present Illness: 71-year-old male with history of diabetes mellitus type [id number], hypertension, hyperlipidemia and dementia presents to the emergency department after sustaining a syncopal episode at home. Patient lives at home with his who is his primary caregiver, patient managed to get outside when was otherwise occupied, he was out of her sight for just a minute or 2 she reports. When she found him he was in the backyard laying on the ground on his back, she reports he was unresponsive, his skin appeared frausto and she reports he looked "as if he was ". reports patient was unresponsive for the next 5 to 10 minutes until EMS arrived at which point he began to regain consciousness. At this time patient is back to his baseline mental status. Patient was evaluated in the emergency department his labs were unremarkable he had a CT head, neck, chest abdomen and pelvis as well as x-rays of humerus, clavicle and chest x-ray all of which were negative for any acute findings. Patient's is at bedside, he is currently oriented x1, agitated reporting that he would like to get up out of bed. Patient reports this is normal behavior for him while he is in the hospital. Given syncope with prolonged loss of consciousness ED provider wishes to admit for further evaluation and management. Patient denies any symptoms at this time although ROS is severely limited given patient's mental capacity. Hospital Course: Assessment Patient is 71-year-old male past medical history of dementia, type 2 diabetes mellitus, hypertension hyperlipidemia. He is admitted for evaluation of syncope which was witnessed by his . Trauma work-up was unremarkable. Brain MRI with evidence of acute stroke in the lateral pontine area. He was also found to have spine cord edema of the cervical spine. Problem list Acute CVA Syncope Cervical spinal cord edema Type 2 diabetes mellitus Hypertension Hyperlipidemia Dementia Plan: Will give a dose of IV Dexamethasone Arrange transfer to spine service to his cervical spine Continue ASA and statin for CVA. I have also consulted Neurology for consult PT/OT while in house Patient was admitted for syncope, it was noted that patient was having dif ficulty with movement of his upper extremities for this reason MRI of his head and C-spine were both obtained. MRI demonstrated acute stroke in the lateral pontine area, CT C-spine demonstrated cord edema of the cervical spine. For this reason transfer was initiated to tertiary center. At this time patient is been accepted for transfer. Stable for transfer at this time. Vital Signs/Physical Exam: Temp Pulse Resp BP Pulse Ox 98.6 F 72 18 140/70 98 05/18/21 15:56 05/18/21 15:56 05/18/21 15:56 05/18/21 17:30 05/18/21 15:56 General: Alert, In no apparent distress, Oriented x1 HEENT: Atraumatic, PERRLA, EOMI Neck: Supple, JVD not distended Respiratory: Clear to auscultation bilaterally, Normal air movement Cardiovascular: Regular rate/rhythm, Normal S1 S2 Gastrointestinal: Normal bowel sounds, No tenderness Musculoskeletal: No tenderness Integumentary: No rashes Neurological: Normal speech, Normal tone, Normal affect, Abnormal strength (upper extremity weakness) Laboratory Data at Discharge: WBC 10.10 K/uL (4.3-10.9) D 05/18/21 06:02 Hgb 15.4 g/dL (13.6-17.9) 05/18/21 06:02 Hct 46.1 % (39.6-49.0) 05/18/21 06:02 Plt Count 213 K/uL (152-406) 05/18/21 06:02 PT 11.6 SECONDS (9.5-12.5) 05/16/21 18:49 INR 1.01 05/16/21 18:49 Sodium 138 mmol/L (136-145) 05/18/21 06:02 Potassium 3.9 mmol/L (3.5-5.1) 05/18/21 06:02 BUN 21 mg/dL (7-18) H 05/18/21 06:02 Creatinine 0.58 mg/dL (0.55-1.3) 05/18/21 06:02 Glucose 115 mg/dL (74-106) H 05/18/21 06:02 Magnesium 2.4 mg/dL (1.8-2.4) 05/18/21 06:02 Total Bilirubin 0.8 mg/dL (0.2-1.0) 05/18/21 06:02 AST 9 U/L (15-37) L 05/18/21 06:02 ALT 29 U/L (12-78) 05/18/21 06:02 Alkaline Phosphatase 87 U/L (45-117) 05/18/21 06:02 Triglycerides 49 mg/dL (<150) 05/17/21 04:50 Cholesterol 240 mg/dL (<200) H 05/17/21 04:50 HDL Cholesterol 57 mg/dL (40-60) 05/17/21 04:50 Cholesterol/HDL Ratio 4.21 05/17/21 04:50 Home Medications: Amlodipine [Norvasc] 10 mg PO DAILY 05/17/21 Aspirin [Aspirin EC 325 MG] 325 mg PO DAILY 05/17/21 Citalopram Hydrobromide [Citalopram HBr] 40 mg PO DAILY 05/17/21 Dapagliflozin Propanediol [Farxiga] 10 mg PO DAILY 05/17/21 Glimepiride 4 mg PO BID 05/17/21 Levothyroxine [Synthroid] 75 mcg PO [id number] 05/17/21 Lisinopril [Zestril] 20 mg PO DAILY 05/17/21 Sitagliptin Phosphate [Januvia] 100 mg PO DAILY 05/17/21 Physician Discharge Instructions: Continue with plan of care at receiving facility Followup: NONE,NONE [Primary Care Provider] - Time spent managing pt's care (in minutes): 30
[2021-05-19] MEDS ORDERED: HOME MED 1 EA UNK (Sitagliptin Phosphate [Januvia] 50 MG Tablet) PO SCH (09:00)
[2021-05-19] MEDS ORDERED: CITALOPRAM 10 MG TABLET PO SCH (09:00)
[2021-05-19] MEDS ORDERED: HOME MED 1 EA UNK (Dapagliflozin Propanediol [Farxiga] 10 MG Tablet) PO SCH (09:00)
[2021-05-19] MEDS ORDERED: lisinopriL 20 MG TAB PO SCH (09:00)
[2021-05-19] MEDS ORDERED: HOME MED 1 EA UNK (Aspirin [Aspirin Ec 325 Mg] 325 MG Tablet.Dr) PO SCH (09:00)
[2021-05-19] MEDS ORDERED: AMLODIPINE 10 MG TAB PO SCH (09:00)
--- NOTE | 2021-05-20 12:42 | CON ---
Date of Consultation: 05/17/2021 Reason For Consultation: I saw the patient because of fall and possible presyncope. History Of Present Illness: The patient is a 71-year-old male who fell while walking, did not have a ny chest pain. He was unresponsive for 30 minutes. No history of nausea, vomiting, diaphoresis, PND , orthopnea, pedal edema, palpitations. Denied any fever or chills. Past Medical History: Includes hypertension, diabetes, stroke, dyslipidemia, and dementia. Medications: At home include Plavix. Review of Systems: Negative. Social History: Negative. Family History: Noncontributory. Physical Examination: Vital Signs: Blood pressure 148/64, pulse 99, sinus rhythm, afebrile. HEENT: Negative. Neck: Supple. No bruit. Chest: Clear to auscultation and percussion. Cardiac: Regular rhythm and rate. No murmurs, gallops, or rubs. Abdomen: Benign. Extremities: No clubbing, cyanosis, or edema. Diagnostic Data: He had elevated lipids and elevated glucose, but negative troponin. His workup inc luded an echocardiogram which basically showed an ejection fraction of 79%. Otherwise, it was normal . He had a carotid artery ultrasound that did not show any hemodynamically significant stenosis. Br ain MRI showed area of 3-4 mm acute micro infarct in the right lateral aspect of the alejandro. His EKG s howed left ventricular hypertrophy with some PVCs. Chest x-ray showed no acute abnormality. Impression And Plan: Syncope, possible small CVA in the alejandro area. Neurological consultation may be helpful, but I think the patient should be on statin, aspirin, Plavix. No intervention cardiac-murdock is recommended at this point. He can go home whenever it is okay with Dr. Murdock, but would like t o see him in the office as an outpatient. BRYSON/MODL Voice ID: [id number] Report ID: [id number]
== END 2021-05-18 22:00 | disposition short-term general hospital (02) | DRG 64 ==
LOC: ER 18:39 → ERHOLD 21:29 → 4TH 05-17 09:52 → OBSVTOIN 05-17 17:48
PROVIDERS: ADMIT Internal Medicine; ATTEND Internal Medicine
DX: I63.9 Cerebral infarction, unspecified (principal); G95.19 Other vascular myelopathies; E11.9 Type 2 diabetes mellitus without complications; I10 Essential (primary) hypertension; E78.5 Hyperlipidemia, unspecified; F03.90 Unspecified dementia, unspecified severity, without behavioral disturbance, psychotic disturbance, mood disturbance, and anxiety; R53.1 Weakness; R40.4 Transient alteration of awareness; Z20.822 Contact with and (suspected) exposure to COVID-19
CPT/HCPCS: 36415; 70450; 70551; 71045; 71260; 72125; 72142; 72156; 74177; 80048; 80053; 80061; 80076; 81003; 82947; 83036; 83735; 83880; 84439; 84443; 84484; 85025; 85610; 93005; 93306; 93880; 96374; 96375; 97112; 97161; 97530; 99285; A9577; G0378; J1100; J1650; J2405; J3010; J3486; Q9967; U0003